=== PATIENT | male | born 1955 | race Caucasian/White ===

== ENCOUNTER 2017-08-07 07:50 | Outpatient (CLI) | payer OTHER ==
[2013-05-16 13:18] VITALS: O2SAT 94
== END 2017-08-07 07:51 | disposition home or self-care (01) | DRG 556 ==
LOC: CONVCARE 07:50
PROVIDERS: ATTEND Orthopaedic Surgery
DX: M25.551 Pain in right hip (principal); M54.5 Low back pain; Z96.641 Presence of right artificial hip joint
CPT/HCPCS: 72120; 73501

== ENCOUNTER 2017-09-02 14:28 | Day surgery (SDC) | payer OTHER ==
[2017-09-02] MEDS ORDERED: BUPIVACAINE HCL 0.25% MPF 10 ML SOL INFIL ONE (15:00)
[2017-09-02] MEDS ORDERED: TRIAMCINOLONE ACETONIDE 40 MG/ML SUS ONE (15:00)
[2017-09-02 15:10] VITALS: RESP 16
[2017-09-02 15:32] VITALS: BP 148/86; PULSE 73; TEMP 98.4; O2SAT 96
== END 2017-09-02 15:47 | disposition home or self-care (01) | DRG 552 ==
LOC: SURG 14:28
PROVIDERS: ATTEND Nurse Anesthetist, Certified Registered
DX: M54.5 Low back pain (principal); M53.86 Other specified dorsopathies, lumbar region; M54.16 Radiculopathy, lumbar region
CPT/HCPCS: J3300

== ENCOUNTER 2017-10-08 11:41 | Day surgery (SDC) | payer OTHER ==
[2017-10-08] MEDS ORDERED: BUPIVACAINE HCL 0.25% MPF 10 ML SOL INFIL ONE (13:00)
[2017-10-08] MEDS ORDERED: DEXAMETHASONE SOD PHOS PF 10 MG/ML SOL IJ ONE (13:00)
[2017-10-08] MEDS ORDERED: LIDOCAINE HCL 1% MPF SOL ONE (13:17)
[2017-10-08 13:53] VITALS: BP 158/87; PULSE 75; RESP 16; TEMP 100.3; O2SAT 96
== END 2017-10-08 14:29 | disposition home or self-care (01) | DRG 552 ==
LOC: SURG 11:41
PROVIDERS: ATTEND Nurse Anesthetist, Certified Registered
DX: M53.86 Other specified dorsopathies, lumbar region (principal); M54.16 Radiculopathy, lumbar region
CPT/HCPCS: J1100; J2001